=== PATIENT | female | born 1985 | race Caucasian/White ===

== ENCOUNTER 2016-06-30 15:06 | Emergency (ER) | payer MEDICAID, OTHER ==
[~2016-06-30] VITALS: Ht 165.1 cm; Wt 78.9 kg
[2016-06-30] MEDS ORDERED: DEPA500T2 PO (15:25)
[2016-06-30 17:36] LABS: BASO % 0.4 % (0.0-1.0); EOS # 0.1 K/mm3 (0.0-0.50); EOS % 1.4 % (0.0-3.0); LARGE UNSTAINED CELL # 0.1 K/mm3 (0.0-0.4); LYMPH % 28.8 % (24.0-44.0); MEAN CORPUSCULAR HEMOGLOBIN 30.3 pg (27.0-33.0); MEAN CORPUSCULAR HGB CONC 33.8 g/dl (32.0-36.5); MEAN CORPUSCULAR VOLUME 89.6 fl (80.0-96.0); MONO # 0.5 K/mm3 (0.0-0.8); MONO % 5.4 % (0.0-5.0); NEUTROPHILS # 6.3 K/mm3 (1.8-7.7); NEUTROPHILS % 62.9 % (36.0-66.0); PLATELET COUNT, AUTOMATED 278 k/mm3 (150-450); RED CELL DISTRIBUTION WIDTH 12.6 % (11.5-14.5)
--- NOTE | 2016-06-30 17:45 | REP ---
Clinical: thoracic pain. Urinary incontinence. Technique: AP, lateral, and swimmers views. Findings: Alignment and kyphosis is maintained. Vertebral bodies intact. No acute fracture / compression injury or subluxation. No degenerative changes. Paravertebral soft tissues are normal. Impression: Normal thoracic spine series. Signed by Gilbert Burton MD 06/30/2016 05:37 P
--- NOTE | 2016-06-30 17:46 | REP ---
Clinical: Back pain. Urinary incontinence. Technique: AP, lateral, bilateral oblique, and coned-down views. Findings: Alignment and lordosis is maintained. The vertebral bodies including transverse process and spinous processes are intact and normal. There is no evidence for acute fracture / compression injury or subluxation. No evidence for spondylolysis or spondylolisthesis. No significant degenerative change is noted. Impression: Normal lumbosacral spine radiograph series. Signed by Gilbert Burton MD 06/30/2016 05:37 P
[2016-06-30 17:54] LABS: ANION GAP 5 MEQ/L (8-16); BLOOD UREA NITROGEN 10 MG/DL (7-18); CARBON DIOXIDE LEVEL 30 MEQ/L (21-32); CHLORIDE LEVEL 108 MEQ/L (98-107); CREATININE FOR GFR 0.84 MG/DL (0.55-1.02); GLOMERULAR FILTRATION RATE > 60.0 (>60); GLUCOSE, FASTING 67 MG/DL (70-105); POTASSIUM SERUM 3.6 MEQ/L (3.5-5.1); SODIUM LEVEL 143 MEQ/L (136-145)
[2016-06-30 18:23] LABS: ERYTHROCYTE SEDIMENTATION RATE 10 mm/hr (0-20)
[2016-06-30] MEDS ORDERED: KETOROLAC 30 MG/ML VIAL (J1885) As Ordered ONE (19:01)
[2016-06-30] MEDS ORDERED: KETOROLAC 30 MG/ML VIAL (J1885) IV ONE (19:15)
--- NOTE | 2016-06-30 20:30 | REPUSA ---
MRI of the lumbar spine without contrast Clinical statement: Pain. Caud equina syndrome? Technique: Multiecho multiplanar MRI images of the lumbar spine were obtained without administration of contrast. No comparison is available. Findings: The lumbar vertebral bodies are in satisfactory position and alignment. No fractures or dis locations are demonstrated. Normal heterogeneous bone marrow signal is noted. No osseous tumors are s een. A 8mm T2 hyperintense lesion is seen posterior to the S2 segment. The intervertebral disc height s are well maintained and demonstrate normal signal. The filum terminale and conus medullaris appear unremarkable. The spinal cord demonstrates normal signal and contour. The surrounding soft tissues ar e within normal limits. At the lumbar vertebral levels, there is no evidence of disc herniation or protrusion. There is no ce ntral canal stenosis. The neural foramina are patent bilaterally. Impression: 1. Grossly unremarkable MRI examination of the lumbar spine. No evidence of court compression or cord tethering. No evidence for cauda equina syndrome. 2. Tiny cyst posterior to the S2 segment, likely a synovial cyst. ER physician was notified of these findings at 8:20 PM on 06/30/2016.
--- NOTE | 2016-06-30 20:30 | REPUSA ---
MRI of the thoracic spine without contrast Clinical statement: Pain. Cauda equina syndrome. Technique: Multiecho multiplanar MRI images of the thoracic spine were obtained without administratio n of contrast. No comparison is available. Findings: The thoracic vertebral bodies are in satisfactory position and alignment. No fractures or d islocations are demonstrated. The bone marrow appears unremarkable. Intervertebral disc spaces are we ll maintained. There is no evidence of disc herniation or protrusion. The central cord appears intact . Flow artifact is seen in the final fluid. The neural foramen are patent. The facet joints are intac t. The surrounding soft tissues are within normal limits. Impression: Unremarkable MRI examination of the thoracic spine.
[2016-06-30] MEDS ORDERED: METHOCARBAMOL 1,000 MG/10 ML VIAL (J2800) IV ONE (21:00)
[2016-06-30] MEDS ORDERED: METH75TA PO (21:20)
[2016-06-30 21:33] VITALS: BP 121/64
== END 2016-06-30 21:39 | disposition home or self-care (01) ==
LOC: M ED 16:52
DX: S39.012A Strain of muscle, fascia and tendon of lower back, initial encounter (principal); X58.XXXA Exposure to other specified factors, initial encounter; Y92.9 Unspecified place or not applicable; Y93.89 Activity, other specified; Y99.9 Unspecified external cause status; F17.200 Nicotine dependence, unspecified, uncomplicated; M71.38 Other bursal cyst, other site; Z88.1 Allergy status to other antibiotic agents; Z88.5 Allergy status to narcotic agent; Z88.8 Allergy status to other drugs, medicaments and biological substances; Z91.041 Radiographic dye allergy status; Z91.013 Allergy to seafood

== ENCOUNTER → 2016-10-30 | Outpatient (REF) | payer OTHER ==
[~2016-10-30] MED LIST: DEPA500T2 PO; METH75TA PO
== END ==
LOC: M LAB REF 12:18
DX: D23.5 Other benign neoplasm of skin of trunk (principal)

== ENCOUNTER → 2017-06-23 | Outpatient (REF) | payer OTHER ==
[2017-06-23 18:57] LABS: APPEARANCE, URINE HAZY (CLEAR); BACTERIA, URINE AUTO NEGATIVE (NEGATIVE); BILIRUBIN, URINE AUTO NEGATIVE (NEGATIVE); BLOOD, URINE BLOOD NEGATIVE (NEGATIVE); COLOR, URINE STRAW (YELLOW); GLUCOSE, URINE (UA) AUTO NEGATIVE (NEGATIVE); KETONE, URINE AUTO NEGATIVE (NEGATIVE); LEUKOCYTE ESTERASE, URINE AUTO NEGATIVE (NEGATIVE); NITRITE, URINE AUTO NEGATIVE (NEGATIVE); PROTEIN, URINE AUTO NEGATIVE (NEGATIVE); RBC, URINE AUTO 0 /HPF (0-3); SPECIFIC GRAVITY URINE AUTO 1.003 (1.002-1.035); SQUAMOUS EPITHELIAL CELL UR AU 5 /HPF (0-6); UROBILINOGEN, URINE AUTO 0.2 mg/dL (0.0-2.0); WBC, URINE AUTO 5 /HPF (0-3)
== END ==
LOC: M SMT 17:05
DX: R31.29 Other microscopic hematuria (principal)
CPT/HCPCS: 81001